=== PATIENT | female | born 1950 | race Caucasian/White ===

== ENCOUNTER 2018-08-29 05:40 | Inpatient (IN) | payer OTHER, MEDICARE ==
[2018-08-29] MEDS ORDERED: LIDOCAINE 1% 2 ML INJ ID PRN (06:48)
[2018-08-29] MEDS ORDERED: LR 1,000 ML IV ONE (06:48)
[2018-08-29] MEDS ORDERED: BUPIVACAINE/EPI 0.5% 30 ML SDV ONE (08:06)
[2018-08-29] MEDS ORDERED: VANCOMYCIN 1 GM VIAL ONE (08:06)
[2018-08-29] MEDS ORDERED: BACITRACIN 50,000 UNITS/10 ML SYR IRR ONE (08:07)
[2018-08-29] MEDS ORDERED: ceFAZolin 2 GM/DEXTROSE 100 ML IV ONE (08:13)
--- NOTE | 2018-08-29 08:14 | PDHPUP ---
History & Physical Update H&P update statement: This history and physical update is based on an assessment of the patient which was completed after admission or registration (within 24 hours), but prior to the surgery/procedure. H&P update: H&P reviewed & patient examined, no change in patient's condition since H&P completed
--- NOTE | 2018-08-29 08:54 | PDANEPAE ---
ANE Past Medical History - Cardiovascular History Hx Hypertension: Yes Hx Arrhythmias: No Hx Chest Pain: No Hx Coronary Artery / Peripheral Vascular Disease: No Hx CHF / Valvular Disease: No Hx Palpitations: No - Pulmonary History Hx COPD: No Hx Asthma/Reactive Airway Disease: No Hx Recent Upper Respiratory Infection: No Hx Oxygen in Use at Home: No Hx Sleep Apnea: No Sleep Apnea Screening Result - Last Documented: Negative Pulmonary History Comment: a little bit of wheezing, pcp ordered flonase, has controlled it - Neurologic History Hx Cerebrovascular Accident: No Hx Seizures: No Hx Dementia: No - Endocrine History Hx Diabetes: No Hypothyroid: No Hyperthyroid: No Obesity: yes, mild - Renal History Hx Renal Disorders: No - Liver History Hx Hepatic Disorders: No - Neurological & Psychiatric Hx Hx Neurological and Psychiatric Disorders: No - Cancer History Hx Cancer: No - Congenital Disorder History Hx Congenital Disorders: No - GI History GERD: no Hx Gastrointestinal Disorders: No - Other Health History Other Health History: wears reading glasses - Chronic Pain History Chronic Pain: Yes (back pain and bilateral knees) - Surgical History Prior Surgeries: 1966 oophorectomy x1. 1976 hemorrhoidectomy and tubal ligation ANE Review of Systems Review of Systems: - Exercise capacity Exercise capacity: limited by disability METS (RN): 4 METS ANE Patient History - Allergies Allergies/Adverse Reactions: No Known Allergies Allergy (Verified 08/12/18 12:17) - Home Medications Home Medications: ACETAMINOPHEN 08/12/18 [Last Taken 08/28/18] Flonase Allergy Relief 08/12/18 [Last Taken 08/28/18] Herbals/Supplements -Info Only 08/12/18 [Last Taken 08/05/18] Losartan Potassium 25 mg PO DAILY 08/12/18 [Last Taken 08/28/18] Triamterene-Hctz 37.5-25 mg Tb PO DAILY 08/12/18 [Last Taken 08/28/18] - NPO status NPO Since - Liquids (Date): 08/29/18 NPO Since - Liquids (Time): 04:00 NPO Since - Solids (Date): 08/28/18 NPO Since - Solids (Time): 15:00 - Anes Hx Anes Hx: no prior problems - Smoking Hx Smoking Status: Never smoked Marijuana use: No - Alcohol Use Alcohol Use: Occasionally - Family Anes Hx Family Anes Hx: neg - N/A Family Hx Anesthesia Complications: none ANE Labs/Vital Signs - Vital Signs Blood Pressure: 156/92 Heart Rate: 70 Respiratory Rate: 15 O2 Sat (%): 91 Height: 165.1 cm Weight: 90.718 kg ANE Physical Exam - Airway Neck exam: decreased ROM Mallampati Score: Class 3 Mouth exam: normal dental/mouth exam - Pulmonary Pulmonary: no respiratory distress, no rales or rhonchi, clear to auscultation - Cardiovascular Cardiovascular: regular rate and rhythym, no murmur, rub, or gallop - ASA Status ASA Status: II ANE Anesthesia Plan Anesthesia Plan: general endotracheal anesthesia Total IV Anesthesia: No
[2018-08-29] MEDS ORDERED: fentaNYL 100 MCG/2 ML INJ ONE ×3 (09:15→15:41)
[2018-08-29] MEDS ORDERED: PROPOFOL/EMULSION 500 MG/50 ML BOTTLE IV ONE ×3 (09:16→13:18)
[2018-08-29] MEDS ORDERED: REMIFENTANIL HCL 1 MG VIAL ONE ×3 (09:16→13:18)
[2018-08-29] MEDS ORDERED: PROPOFOL 200 MG/20 ML VIAL ONE (09:16)
[2018-08-29] MEDS ORDERED: DEXAMETHASONE 4 MG/ML VIAL ONE (09:17)
[2018-08-29] MEDS ORDERED: ONDANSETRON 4 MG/2 ML VIAL ONE (09:17)
[2018-08-29] MEDS ORDERED: ROCURONIUM 50 MG/5 ML VIAL ONE ×2 (09:17→09:59)
[2018-08-29] MEDS ORDERED: LIDOCAINE 2% 2 ML INJ ONE ×2 (09:22)
[2018-08-29] MEDS ORDERED: PHENYLEPHRINE HCL 100 MCG/ML SYR ONE (09:23)
[2018-08-29] MEDS ORDERED: THROMBIN (BOVINE) 20,000 UNIT VIAL TP ONE (09:43)
[2018-08-29] MEDS ORDERED: ePHEDrine SULFATE 25 MG/5 ML SYR ONE (09:59)
[2018-08-29] MEDS ORDERED: *INFUSION*TRANEX ACID 1,000 MG/NS 100 ML IV ONE ×2 (10:00→13:15)
[2018-08-29] MEDS ORDERED: PHENYLEPHRINE HCL 100 MCG/ML SYR IVP PRN (10:16)
[2018-08-29] MEDS ORDERED: ONDANSETRON 4 MG/2 ML VIAL IVP PRN ×2 (10:16→15:04)
[2018-08-29] MEDS ORDERED: NALOXONE HCL 0.4 MG/ML INJ IVP PRN ×2 (10:16→15:04)
[2018-08-29] MEDS ORDERED: HYDROCODONE/APAP 5/325 TAB PO PRN (10:16)
[2018-08-29] MEDS ORDERED: PROMETHAZINE HCL 25 MG/ML INJ IVP PRN (10:16)
[2018-08-29] MEDS ORDERED: HYDROmorphONE/DILAUDID 2 MG/ML INJ IVP PRN (10:16)
[2018-08-29] MEDS ORDERED: LABETALOL HCL 5 MG/ML 20 ML MDV IVP PRN (10:16)
[2018-08-29] MEDS ORDERED: ACETAMINOPHEN 500 MG TAB PO PRN (10:16)
[2018-08-29] MEDS ORDERED: fentaNYL 100 MCG/2 ML INJ IVP PRN (10:16)
[2018-08-29] MEDS ORDERED: oxyCODONE IR 5 MG TAB PO PRN (10:16)
[2018-08-29] MEDS ORDERED: LR 500 ML IV PRN (10:16)
[2018-08-29] MEDS ORDERED: TRANEXAMIC ACID 1,000 MG/10 ML VIAL ONE (10:17)
[2018-08-29] MEDS ORDERED: NEOSTIGMINE METHYLSULFATE 5 MG/5 ML SYR ONE (14:26)
[2018-08-29] MEDS ORDERED: GLYCOPYRROLATE 0.2 MG/1 ML VIAL ONE ×2 (14:26)
[2018-08-29] MEDS ORDERED: HYDROmorphONE/DILAUDID 2 MG/ML INJ ONE ×2 (14:28→15:41)
[2018-08-29] MEDS ORDERED: ONDANSETRON DISINTEGRATING 4 MG TAB PO PRN (15:04)
[2018-08-29] MEDS ORDERED: CYCLOBENZAPRINE 10 MG TAB PO PRN (15:04)
[2018-08-29] MEDS ORDERED: LACTULOSE 20 GM/30 ML UDCUP PO PRN (15:04)
[2018-08-29] MEDS ORDERED: BISACODYL 10 MG SUPP PR PRN (15:04)
[2018-08-29] MEDS ORDERED: POLYETHYLENE GLYCOL 3350 17 GM PKT PO PRN (15:04)
[2018-08-29] MEDS ORDERED: diphenhydrAMINE 25 MG CAP PO PRN (15:04)
[2018-08-29] MEDS ORDERED: HYDROmorphONE/DILAUDID 1 MG/ML INJ IVP PRN (15:04)
[2018-08-29] MEDS ORDERED: HYDROmorphONE/DILAUDID 6 MG/30 ML PCA IV PRN (15:04)
[2018-08-29] MEDS ORDERED: MAGNESIUM HYDROXIDE 30 ML UDCUP PO PRN (15:04)
--- NOTE | 2018-08-29 15:13 | POSTOPPROG ---
Post Op Note Date of Operation: 08/29/18 Surgeon: Vincenzo Luis National Recruiter: Maureen Sterling PA-C Anesthesiologist: Dr. Link Valdivia Anesthesia: GET(General Endotracheal) Pre-op Diagnosis: lumbar stenosis Post-op Diagnosis: lumbar stenosis Indication: low back pain, lumbar radiculitis Procedure: L2-L5 fusion/tlif Inf/Abcess present in the surg proc area at time of surgery?: No EBL: 100-500 Complications: none
[2018-08-29] MEDS ORDERED: DIAZEPAM 5 MG/ML 1 ML SYR ONE (15:16)
--- NOTE | 2018-08-29 15:18 | SOAPPROG ---
SOAP Progress Note Assessment/Plan: Assessment/Plan: 68y/o female s/p L2-L5 fusion/TLIF - orders as written - [employer] only if needed - PT/OT - LSO - TEDs/SCDs/early ambulation - call with issues or concerns 08/29/18 15:16 Subjective: Back hurts, no leg pain Objective: Vital Signs Temp Pulse Resp BP Pulse Ox 36.8 C 70 15 156/92 H 91 L 08/29/18 08:53 08/29/18 10:18 08/29/18 10:18 08/29/18 10:18 08/29/18 10:18 NAD, VSS EOMi, face symmetric LE strength intact quads, hamstring, dorsiflexion, plantarflexion, EHL 5/5=B sensation intact in BLE incision clean, dressed ICD10 Worksheet Patient Problems: Problems Problem Status Onset Lumbar stenosis Acute - ICD10 Problem Qualifiers (1) Lumbar stenosis
[2018-08-29] MEDS: DIAZEPAM 5 MG/ML 1 ML SYR IVP PRN ×2 (15:19→15:52)
--- NOTE | 2018-08-29 16:09 | PDMN ---
Medical Necessity Medical necessity: Pt meets INPT criteria per MD and [facility] (L2-5 fusion, TLIF; [address] [facility] [place]
--- NOTE | 2018-08-29 16:31 | POSTANESTH ---
Post Anesthetic Evaluation Cardiovascular Status: Normal, Stable Respiratory Status: Normal, Stable Level of Consciousness/Mental Status: Can Participate in Eval Pain Control: Adequate, Prn Tx Ordered Nausea/Vomiting Control: Adequate, Prn Tx Ordered Complications Possibly Related to Anesthesia: None Noted
[2018-08-29] MEDS: ceFAZolin 2 GM/DEXTROSE 100 ML IV SCH (17:16)
[2018-08-29] MEDS: oxyCODONE IR 5 MG TAB PO PRN (18:33)
[2018-08-29] MEDS: SENNOSIDES/DOCUSATE SODIUM TAB PO SCH (21:12)
[2018-08-29] MEDS: ACETAMINOPHEN 500 MG TAB PO SCH (21:12)
[2018-08-30] MEDS: ceFAZolin 2 GM/DEXTROSE 100 ML IV SCH (02:33)
[2018-08-30] MEDS: oxyCODONE IR 5 MG TAB PO PRN (02:37)
[2018-08-30] MEDS: ACETAMINOPHEN 500 MG TAB PO SCH ×3 (05:50→22:25)
[2018-08-30] MEDS: TRIAMTERENE/HCTZ 37.5/25 1 EACH TAB PO SCH (09:06)
[2018-08-30] MEDS: SENNOSIDES/DOCUSATE SODIUM TAB PO SCH ×2 (09:06→22:26)
[2018-08-30] MEDS: LOSARTAN POTASSIUM 25 MG TAB PO SCH (09:06)
--- NOTE | 2018-08-30 10:45 | ASMTCMCOM ---
CM Note CM Note Notes: Pt is a healthy 68 y/o female admitted for a lumber stenosis. PT has cleared pt to d/c without any needs. OT is still pending. CM available for d/c needs. Plan: Independent Date Signed: 08/30/2018 10:44 AM Electronically Signed By:MARJ Jacobs
--- NOTE | 2018-08-30 12:54 | GDS ---
This patient underwent an uneventful L2-L5 posterior lumbar decompression fusion with instrumentation on 08/29/2018. She did well during the hospitalization and her drain was discontinued. She progressed well with physical therapy and was subsequently cleared for discharge. The patient has all instructions in her postsurgical booklet. She is not to bend, lift, or twist. She can remove the dressing 24 hours after leaving the hospital and is to shower without having the dressing in place. All medications have been prescribed previously. She was told to avoid blood thinners for the next week and NSAIDs for the next 3 months. She has my cell phone if she has any further questions or concerns. /[id number]/MODL MTDD
--- NOTE | 2018-08-30 12:59 | GPROG ---
I saw and evaluated this patient and I have discussed her plan of care with the patient, her , as well as her nurse. On physical exam, she has no sensory, motor, or vascular deficits. She only has back pain which is a ppropriate. Drain has a moderate amount of output and has been left in place. The dressing did satu rate through and the drain appears to have somewhat stopped, which these 2 things may be related. IMPRESSION: Postoperative day 1 status post L2-L5 posterior lumbar decompression and fusion with ins trumentation. Imaging reviewed includes x-rays of lumbar spine which demonstrate well-positioned instrumentation wi thout evidence of migration or failure. She does have interval reduction of the spondylolisthesis at L3-4 and L4-5. PLAN: We will get the patient up today. We will get her to wear the brace and work with physical th erapy. She can resume a regular diet. Will work with physical therapy, but I think it may be reason able to consider discharge home sometime tomorrow. The patient was encouraged to call me if she has any further questions or concerns. /[id number]/MODL
[2018-08-31] MEDS: oxyCODONE IR 5 MG TAB PO PRN (05:10)
[2018-08-31] MEDS: ACETAMINOPHEN 500 MG TAB PO SCH (05:12)
[2018-08-31 08:16] VITALS: BP 148/78
[2018-08-31] MEDS: LOSARTAN POTASSIUM 25 MG TAB PO SCH (08:30)
[2018-08-31] MEDS: TRIAMTERENE/HCTZ 37.5/25 1 EACH TAB PO SCH (08:31)
[2018-08-31] MEDS: SENNOSIDES/DOCUSATE SODIUM TAB PO SCH (08:31)
[2018-08-31] MEDS ORDERED: ACETAMINOPHEN 500 MG TAB PO SCH (09:00)
--- NOTE | 2018-08-31 10:34 | GPROG ---
I saw the patient at the bedside with her this morning. Overall, she is in good spirits. She is having pain, which has since been controlled on oral regimen. Drain output has decreased, and the patient is neurologically intact. She notes relief of the leg symptoms that she had before the operation. ASSESSMENT AND PLAN: We will discharge the patient when she feels comfortable. That may be later today. We will remove the drain today. The patient is discharged. She will see me in the office in 2 weeks' time and knows all postoperative instructions at this point. /[id number]/MODL MTDD
--- NOTE | 2018-08-31 11:35 | ASMTLACE ---
LACE Length of stay for Answers: 2 days current admission Acuity / Level of Answers: Yes Care: Did the patient have an inpatient admission? Comorbidities - select Answers: Opioid dependence all that apply / Chronic pain Other Notes: HTN # of Emergency department Answers: 0 visits in the last 6 months Score: 10 Date Signed: 08/31/2018 11:35 AM Electronically Signed By:Magui Diana RN
--- NOTE | 2018-08-31 11:45 | ASDISCHSUM ---
Discharge Information Plan Status:Home with No Needs Medically Cleared to Leave:08/31/2018 Discharge Date:08/31/2018 CM D/C Disposition:Home, Routine, Self-Care ADT D/C Disposition: Projected Discharge Date:08/31/2018 Transportation at D/C:Family Discharge Delay Reason: Follow-Up Date:08/31/2018 Discharge Slot:2 - 12:01 pm - 18:00 pm Final Diagnosis:Lumbar-spinal stenosis w/ neurogenic claudication, s/p L2-L5 posterior lumbar decomp ression Placement Information Patient Contact Information Contact Name:ZACHARY Relationship: Address:[address] [place] [address] City:[place] Alternate Phone: State/Zip Code:[place] [address] Email: Financial Information Financial Class:Medicare Primary Plan Desc:MEDICARE INPATIENT Primary Plan Number:[id number] Secondary Plan Desc:[employer]/MDR SUPPLEMENT Secondary Plan Number:[id number] Assessment Information LACE LACE Length of stay for Answers: 2 days current admission Acuity / Level of Answers: Yes Care: Did the patient have an inpatient admission? Comorbidities - select Answers: Opioid dependence all that apply / Chronic pain Other Notes: HTN # of Emergency department Answers: 0 visits in the last 6 months Score: 10 Date Signed: 08/31/2018 11:35 AM Electronically Signed By:Magui Diana RN [facility] CM Progress Note CM Note CM Note Notes: Pt is a healthy 68 y/o female admitted for a lumber stenosis. PT has cleared pt to d/c without any needs. OT is still pending. CM available for d/c needs. Plan: Independent Date Signed: 08/30/2018 10:44 AM Electronically Signed By:MARJ Jacobs Case Management Discharge Plan Note Case Management Discharge Discharge Order Complete? Answers: Yes Patient to Obtain Answers: Independently Medications Transportation Arranged Answers: Family/Friends Transport will Pick (Date 08/31/2018 12:00 AM & Time) EMTALA Complete Answers: No Notes: N/A Case Management Transport Answers: No Notes: N/A Form Complete Faxed Final Orders Answers: No Notes: N/A Agency/Facility Transfer Answers: No Notes: N/A Report Printed & Faxed to Receiving Agency Family Notified Answers: Yes Notes: at bedside Discharge Comments Notes: Reviewed chart regarding discharge plan of care, pt's progress. Pt is s/p L2-L5 posterior lumbar decompression. Per MD notes, pt to discharge home independently with family support and no identified needs. PT cleared pt for home with use of a front-wheeled walker. OT recommends HHC with 24 hr supervision. Spoke with LUIS ANGEL Santacruz - per Noam, pt safe to discharge without HHC, "pt feeling more confident today." Pt to follow up as directed. IM signed. CM available for any further issues or concerns. Discharge Plan: Home independently with family support Date Signed: 08/31/2018 11:44 AM Electronically Signed By:Magui Diana RN Intervention Information
== END 2018-08-31 12:17 | disposition home or self-care (01) | DRG 460 ==
LOC: F3N 05:40
PROVIDERS: ADMIT Orthopaedic Surgery Orthopaedic Surgery of the Spine; ATTEND Orthopaedic Surgery Orthopaedic Surgery of the Spine
DX: M43.16 Spondylolisthesis, lumbar region (principal); M47.26 Other spondylosis with radiculopathy, lumbar region; M51.16 Intervertebral disc disorders with radiculopathy, lumbar region
CPT/HCPCS: 97116-GP; 97161-GP; 97165-GO; 97530-GP; 97535-GO; C1713; G8978-GP-CI; G8978-GP-CJ; G8979-GP-CI; G8980-GP-CI; G8987-GO-CK; G8988-GO-CI; J0690; J1100; J1170; J2370; J2405; J2704; J2710; J3010; J3360; J3370

== ENCOUNTER 2018-10-23 12:29 | Inpatient (IN) | payer OTHER, MEDICARE ==
[2018-10-23] MEDS ORDERED: ceFAZolin 2 GM/DEXTROSE 100 ML IV ONE (12:57)
[2018-10-23] MEDS ORDERED: TRANEXAMIC ACID 1,000 MG in NS 100 ML IV ONE (12:57)
--- NOTE | 2018-10-23 13:23 | GHP ---
The patient underwent an uneventful lumbar decompression and fusion with instrumentation approximatel y 7 weeks ago. She was noted to have a draining incision today. I saw her in the clinic. Clearly, there is some sort of sinus tract deep. I think we should perform an irrigation and debridement. PHYSICAL EXAMINATION: Draining sinus tract. No sensory, motor, or vascular deficits noted. Mild er ythema noted around the incision. IMPRESSION: Possible lumbar spine infection. ASSESSMENT AND PLAN: We will admit the patient. Get blood cultures, urinalysis, chest x-ray and sim ple labs. We will make the patient n.p.o. and hopefully get her on for an irrigation and debridement of the lumbar spine tonight. The patient expressed understanding of the plan. /[id number]/MODL
[2018-10-23 14:17] LABS: PLATELET COUNT 320 10^3/uL (150-400)
[2018-10-23] MEDS ORDERED: LR 1,000 ML IV SCH (16:00)
[2018-10-23] MEDS ORDERED: MIDAZOLAM 2 MG/2 ML VIAL IVP ONE (19:46)
--- NOTE | 2018-10-23 19:46 | PDANEPAE ---
ANE History of Present Illness lumbar spine I&D ANE Past Medical History - Cardiovascular History Hx Hypertension: Yes Hx Arrhythmias: No Hx Chest Pain: No Hx Coronary Artery / Peripheral Vascular Disease: No Hx CHF / Valvular Disease: No Hx Palpitations: No - Pulmonary History Hx COPD: No Hx Asthma/Reactive Airway Disease: No Hx Recent Upper Respiratory Infection: No Hx Oxygen in Use at Home: No Hx Sleep Apnea: No Sleep Apnea Screening Result - Last Documented: Negative Pulmonary History Comment: a little bit of wheezing, pcp ordered flonase, has controlled it - Neurologic History Hx Cerebrovascular Accident: No Hx Seizures: No Hx Dementia: No - Endocrine History Hx Diabetes: No - Renal History Hx Renal Disorders: No - Liver History Hx Hepatic Disorders: No - Neurological & Psychiatric Hx Hx Neurological and Psychiatric Disorders: No - Cancer History Hx Cancer: No - Congenital Disorder History Hx Congenital Disorders: No - GI History Hx Gastrointestinal Disorders: No - Other Health History Other Health History: wears reading glasses - Chronic Pain History Chronic Pain: Yes (back pain and bilateral knees) - Surgical History Prior Surgeries: 1966 oophorectomy x1. 1976 hemorrhoidectomy and tubal ligation ANE Review of Systems Review of systems is: negative Review of Systems: - Exercise capacity Exercise capacity: limited by disability ANE Patient History - Allergies Allergies/Adverse Reactions: No Known Allergies Allergy (Verified 08/12/18 12:17) - Home Medications Home medications: home medication list seen and reviewed Home Medications: Acetaminophen [Tylenol ES 500 mg (*)] 500 mg PO Q4 PRN 08/29/18 [Last Taken ] Fluticasone Nasal [Flonase Nasal [place] (RX)] 1 sprays NASAL DAILY PRN 08/29/18 [ Last Taken Unknown] Losartan Potassium [Cozaar 25 mg (*)] 25 mg PO DAILY 08/29/18 [Last Taken ] Triamterene/Hydrochlorothiazid [Triamterene-Hctz 37.5-25 mg Tb] 1 each PO DAILY 08/29/18 [Last Taken 10/23/18] Diclofenac Sodium 1% [Voltaren Gel (*)] 1 sukh TP DAILY PRN 10/23/18 [Last Taken 10/23/18] Tetrahydrozoline 0.05% [Visine (*)] 1 drop EACHEYE DAILY PRN 10/23/18 [Last Taken Unknown] - NPO status NPO Status: no food or drink >8 hours NPO Since - Liquids (Date): 10/23/18 NPO Since - Liquids (Time): 08:30 NPO Since - Solids (Date): 10/23/18 NPO Since - Solids (Time): 08:30 - Anes Hx Anes Hx: no prior problems - Smoking Hx Smoking Status: Never smoked - Family Anes Hx Family Anes Hx: none Family Hx Anesthesia Complications: none ANE Labs/Vital Signs - Labs Result Diagrams: 10/23/18 14:03 10/23/18 14:03 - Vital Signs Vital Signs: reviewed preoperatively; see RN documention for details Blood Pressure: 122/74 Heart Rate: 73 Respiratory Rate: 16 O2 Sat (%): 92 Height: 162.56 cm Weight: 87.09 kg ANE Physical Exam - Airway Neck exam: decreased ROM Mallampati Score: Class 2 Mouth exam: abnormal chin - Pulmonary Pulmonary: no respiratory distress - Cardiovascular Cardiovascular: regular rate and rhythym - ASA Status ASA Status: II ANE Anesthesia Plan Anesthesia Plan: general endotracheal anesthesia
[2018-10-23] MEDS ORDERED: LR 1,000 ML IV ONE (20:01)
[2018-10-23] MEDS ORDERED: CEFAZOLIN 2 GM/DEXTROSE/100 ML BAG IV ONE (20:09)
[2018-10-23] MEDS ORDERED: MIDAZOLAM 2 MG/2 ML VIAL ONE (20:15)
[2018-10-23] MEDS ORDERED: ROCURONIUM 50 MG/5 ML VIAL ONE (20:19)
[2018-10-23] MEDS ORDERED: DEXAMETHASONE 4 MG/ML VIAL ONE (20:19)
[2018-10-23] MEDS ORDERED: LIDOCAINE 2% 100 MG/5 ML SYR ONE (20:19)
[2018-10-23] MEDS ORDERED: ONDANSETRON 4 MG/2 ML VIAL ONE (20:19)
[2018-10-23] MEDS ORDERED: fentaNYL 250 MCG/5 ML INJ ONE (20:20)
[2018-10-23] MEDS ORDERED: PROPOFOL 200 MG/20 ML VIAL ONE (20:20)
[2018-10-23] MEDS ORDERED: BACITRACIN 50,000 UNITS/10 ML SYR IRR ONE ×2 (20:32→21:04)
[2018-10-23] MEDS ORDERED: VANCOMYCIN 1 GM VIAL ONE (21:07)
[2018-10-23] MEDS ORDERED: ePHEDrine SULFATE 25 MG/5 ML SYR ONE (21:14)
[2018-10-23] MEDS ORDERED: LABETALOL HCL 5 MG/ML 20 ML MDV IVP PRN (21:28)
[2018-10-23] MEDS ORDERED: fentaNYL 100 MCG/2 ML INJ IVP PRN (21:28)
[2018-10-23] MEDS ORDERED: DEXAMETHASONE 4 MG/ML VIAL IVP PRN (21:28)
[2018-10-23] MEDS ORDERED: oxyCODONE IR 5 MG TAB PO PRN (21:28)
[2018-10-23] MEDS ORDERED: ONDANSETRON 4 MG/2 ML VIAL IVP PRN (21:28)
[2018-10-23] MEDS ORDERED: HYDROCODONE/APAP 5/325 TAB PO PRN (21:28)
[2018-10-23] MEDS ORDERED: MEPERIDINE 25 MG/0.5 ML AMP IVP PRN (21:28)
[2018-10-23] MEDS ORDERED: NALOXONE HCL 0.4 MG/ML INJ IVP PRN (21:28)
[2018-10-23] MEDS ORDERED: HYDROmorphONE/DILAUDID 2 MG/ML INJ IVP PRN (21:28)
[2018-10-23] MEDS ORDERED: PROMETHAZINE HCL 25 MG/ML INJ IVP PRN (21:28)
[2018-10-23] MEDS ORDERED: ACETAMINOPHEN 500 MG TAB PO PRN (21:28)
--- NOTE | 2018-10-23 21:28 | POSTANESTH ---
Post Anesthetic Evaluation Cardiovascular Status: Normal, Stable, Similar to Pre-Op Cond Respiratory Status: Normal, Stable, Similar to Pre-op Cond. Level of Consciousness/Mental Status: Can Participate in Eval, Mildly Sleepy, Arousable Pain Control: Adequate, Prn Tx Ordered Nausea/Vomiting Control: Adequate, Prn Tx Ordered Complications Possibly Related to Anesthesia: None Noted
[2018-10-23] MEDS ORDERED: LACTULOSE 20 GM/30 ML UDCUP PO PRN (21:57)
[2018-10-23] MEDS ORDERED: MAGNESIUM HYDROXIDE 30 ML UDCUP PO PRN (21:57)
[2018-10-23] MEDS ORDERED: POLYETHYLENE GLYCOL 3350 17 GM PKT PO PRN (21:57)
[2018-10-23] MEDS ORDERED: BISACODYL 10 MG SUPP PR PRN (21:57)
--- NOTE | 2018-10-23 22:03 | SUROPNOTE ---
[facility] Operative Report - Surgery SURGEON: Vincenzo Luis MD DATABASE DESIGN ANALYST: None. ANESTHESIA: General. PREOPERATIVE DIAGNOSIS: Lumbar spine infection. POSTOPERATIVE DIAGNOSIS: Lumbar spine infection. PROCEDURE PERFORMED: Lumbar spine irrigation and debridement, application of nondurable negative pressure device. FINDINGS: Gross drainage throughout the lumbar spine, to the bone and spinal instrumentation. SPECIMENS: Cultures x4 (2 superficial, 2 deep). ESTIMATED BLOOD LOSS: 50 cc. INDICATIONS: The patient is a very pleasant 68-year-old female who underwent a lumbar spine decompression and fusion with instrumentation about 8 weeks ago. He was doing well until about a week ago when he was noted to have some drainage from the incision. He was indicated for surgery by me after onset of malaise and persistent drainage despite antibiotic administration. DESCRIPTION OF PROCEDURE: A surgical time-out was performed and all parties were in agreement on the procedure to be performed, antibiotics were held for the procedure, and preoperative tranexamic acid was administered for the purpose of limiting blood loss. Approach: The incision was opened up and immediate gush of dishwater-type fluid was returned. This was cultured along with some trace amounts of tissue. These were sent as superficial cultures. Antibiotics were administered at this time. The fascia was then opened up as it was noted to be somewhat boggy. Another immediate shields of fluid with abundant fibrinous tissue and purulence was noted. This was also sent for culture as well. Irrigation and debridement: At this time, 3 L of saline was used to debride the lumbar spine and any bits of tissue that were noted were scraped out. Curettes were scraped on all surfaces here as well. At this time, Betadine was placed into the surgical wound itself and left to sit there for approximately 4 minutes. This was then irrigated out with 3 additional L of saline impregnated with antibiotic. Attention was then turned toward closure. #1 Vicryl were used to reapproximate the muscle layer. A deep drain was placed deep to this layer. #1 Vicryl were also used in both an interrupted and running fashion to close the fascia. 2-0 Monocryl sutures were used to reapproximate the deep dermal layers and a 4-0 Stratafix was used to approximate the skin. Mastisol was then applied and a negative pressure wound VAC was then applied to the skin. The suction was noted to be good. I was present for the entirety of the procedure. DRAINS: Negative pressure incisional VAC, deep drain (deep to the fascia). COMPLICATIONS: None. CONDITION: Stable to PACU. ASSESSMENT AND PLAN: The patient will be returned to the PACU. I have since discussed with Miranda Franklin MD regarding infectious disease consultation. At this point, we will put her on some empiric antibiotics and leave the rest to ID, to be consulted tomorrow. He does not need to respect spine precautions. Further medical management will be per ID and we will admit the patient for at least 24 hours to come up with a plan regarding infection.
[2018-10-23] MEDS: METHOCARBAMOL 750 MG TAB PO PRN (22:50)
[2018-10-24] MEDS ORDERED: ceFAZolin 2 GM/DEXTROSE 100 ML IV SCH (05:00)
[2018-10-24 05:21] LABS: PLATELET COUNT 276 10^3/uL (150-400)
--- NOTE | 2018-10-24 06:06 | CPEKG ---
Test Reason : OPEN Blood Pressure : / mmHG Vent. Rate : 072 BPM Atrial Rate : 072 BPM P-R Int : 175 ms QRS Dur : 090 ms QT Int : 393 ms P-R-T Axes : 026 026 029 degrees QTc Int : 431 ms Sinus rhythm Confirmed by Keith Meeks ([id number]) on 10/24/2018 6:05:12 AM Referred By: Confirmed By:Keith Meeks
--- NOTE | 2018-10-24 08:07 | PDMN ---
Medical Necessity Medical necessity: [facility] Neurosurgery or Procedure GR yo s/p lumbar fusion 8wks ago admitted for infection to surgical site, incision and drainage completed by neurosurgery, noted gross drainage throughout lumbar spine, to bone and spinal instrumentation. Wound vac placed. Cultures pending. Infectious disease to follow. Anticipate>2MN for IV antibx, infection management.
--- NOTE | 2018-10-24 09:14 | PDCONSULT ---
Seed Corn Production Manager Note: INFECTIOUS DISEASE CONSULTATION A/P Post op wound infection down to bone/hardware s/p washout. Gram stain with GPC --Rx vancomycin until more information about GPC known. Vancomycin 1gm IV q12h --check trough before 4th dose --PICC line after blood cultures negative 48hours --IV antibiotic duration 8 weeks --reviewed general risks of IV antibiotic therapy and will provide more specifics when specific agent selected based on cultures --reviewed risk of Cdiff --discussed need for home IV abx w case management --add on CRP and LFTs to labs # Soft systolic murmur: unclear significance, will sort out based on results of blood cultures Date of consultation: 10/24/18 MD requesting consult: Dr. Richard Luis History of present illness: 68 year-old female who underwent posterior lumbar decompression fusion on . Perioperatively she received cefazolin 2 gm and vancomycin 1 gm. Postoperatively, she notes that she recovered rapidly only needing acetaminophen while in the hospital. After d/c took codeine at night and was " up and at them pretty quickly" with the exception of bending, lifting, and twisting (per surgical orders). She proceeded to go on a relaxing vacation and wore a "bag brace" during the 4th week s/p discharge. On 10/11 was seen by her surgeon Dr. Luis with no new concerns and was cleared. Subsequently, she purchased Mederma scar gel that she began applying to her incision. About 2.5 weeks later she began to notice some drainage from the surgical incision and notifed surgeon about [address] Richard Luis evaluated and elected to debride yesterday. Denies other signs of infection Denies associated fevers or resurgence of back discomfort with the exception of some skin tenderness surrounding the incision. Here at [facility] she presented with nonhealing draining wound, went to the OR with washout noted for purulence described as dishwater type fluid. Other information: NKDA to medications, does report seasonal allergies tx with Flonase. 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 Was born in [place], [place]. Has lived in [place] and [facility] in childhood but primarily was raised in [place]. Pt has a cat and a dog at home. She does see a citizen participation specialist at [facility] ([place], [place]). No children PMHx: HTN Surgical hx: oophorectomy in 1968, tubal ligation, tonsillectomy in childhood Social hx: drinks etoh x6-8 drinks per month, no children Family hx: both parents were smokers, but she was never a smoker Allergies: 3 Allergy/AdvReac Type Severity Reaction Status Date / Time No Known Allergies Allergy Verified 08/12/18 12:17 Medications: 3 Generic Name Dose Route Start Last Admin Trade Name Freq PRN Reason Stop Dose Admin Bisacodyl 10 mg 10/23/18 21:57 Dulcolax Rectal LA 04/21/19 21:56 DAILY PRN Constipation Protocol Famotidine 20 mg 10/24/18 09:00 Pepcid PO 04/22/19 08:59 BID SRIDEVI Lactated Ringer's 1,000 mls @ 125 mls/hr 10/23/18 16:00 10/23/18 23:00 Lr IV 04/21/19 15:59 1,000 mls CONT SRIDEVI Administration Cefazolin Sodium/Dextrose 100 mls @ 200 mls/hr 10/24/18 05:00 10/24/18 05:03 Ancef IV 10/24/18 13:29 100 mls Q8H SRIDEVI Administration Protocol Lactulose 20 gm 10/23/18 21:57 Cephulac PO 04/21/19 21:56 TID PRN Constipation Protocol Magnesium Hydroxide 30 ml 10/23/18 21:57 Milk Of Magnesia PO 04/21/19 21:56 DAILY PRN Constipation Protocol Methocarbamol 750 mg 10/23/18 21:57 10/23/18 22:50 Robaxin PO 04/21/19 21:56 750 mg QID PRN Administration Spasms Morphine Sulfate 2 - 4 mg 10/23/18 21:57 10/23/18 22:51 Morphine IVP 11/02/18 21:56 2 mg Q1HR PRN Administration Pain, Breakthrough Polyethylene Glycol 17 gm 10/23/18 21:57 Miralax PO 04/21/19 21:56 DAILY PRN Constipation, patient prefers Protocol Senna/Docusate Sodium 1 - 2 tab 10/24/18 09:00 Senokot-S PO 04/22/19 08:59 BID SRIDEVI Protocol ROS: 10 systems were reviewed and negative with the exception of the elements mentioned in the history of present illness. Vitals: 3 Temp Pulse Resp BP Pulse Ox 37.2 C 82 13 125/68 H 90 L 10/24/18 08:00 10/24/18 08:00 10/24/18 08:00 10/24/18 08:00 10/24/18 08:00 Physical exam: General: Well-nourish, well-developed, in no acute distress, nontoxic. HEENT: No scleral icterus, no conjunctival injection. Oropharynx with moist mucous membranes, no thrush or no oral ulcerations, dentition in good repair with extensive prior dental work. Respiratory: Clear to auscultation bilaterally without adventitious sounds. Normal respiratory effort. Cardiovascular: Regular rate and rhythm, 2/6 systolic murmur loudest at LUSB, no rubs or gallops. No lower extremity edema. Back: Lumbar spine with incisional wound VAC in place. BALDEV drain - bloody fluid Skin: Warm and dry to touch. No rashes present. Neuro: Alert and oriented. Moving all 4 extremities. Laboratory results: 3 WBC 6.10 10^3/uL (3.80-9.50) 10/24/18 05:08 RBC 3.87 10^6/uL (4.18-5.33) L 10/24/18 05:08 Hgb 11.7 g/dL (12.6-16.3) L 10/24/18 05:08 Hct 35.6 % (38.0-47.0) L 10/24/18 05:08 MCV 92.0 fL (81.5-99.8) 10/24/18 05:08 MCH 30.2 pg (27.9-34.1) 10/24/18 05:08 MCHC 32.9 g/dL (32.4-36.7) 10/24/18 05:08 RDW 13.6 % (11.5-15.2) 10/24/18 05:08 Plt Count 276 10^3/uL (150-400) 10/24/18 05:08 MPV 9.8 fL (8.7-11.7) 10/24/18 05:08 Neut % (Auto) 88.3 % (39.3-74.2) H 10/24/18 05:08 Lymph % (Auto) 8.4 % (15.0-45.0) L 10/24/18 05:08 [place] % (Auto) 2.8 % (4.5-13.0) L 10/24/18 05:08 Eos % (Auto) 0.0 % (0.6-7.6) L 10/24/18 05:08 Baso % (Auto) 0.2 % (0.3-1.7) L 10/24/18 05:08 Nucleat RBC Rel Count 0.0 % (0.0-0.2) 10/24/18 05:08 Absolute Neuts (auto) 5.39 10^3/uL (1.70-6.50) 10/24/18 05:08 Absolute Lymphs (auto) 0.51 10^3/uL (1.00-3.00) L 10/24/18 05:08 Absolute Monos (auto) 0.17 10^3/uL (0.30-0.80) L 10/24/18 05:08 Absolute Eos (auto) 0.00 10^3/uL (0.03-0.40) L 10/24/18 05:08 Absolute Basos (auto) 0.01 10^3/uL (0.02-0.10) L 10/24/18 05:08 Absolute Nucleated RBC 0.00 10^3/uL (0-0.01) 10/24/18 05:08 Immature Gran % 0.3 % (0.0-1.1) 10/24/18 05:08 Immature Gran # 0.02 10^3/uL (0.00-0.10) 10/24/18 05:08 RBC/WBC/PLT Morphology TNP 10/24/18 05:08 Platelet Estimate TNP 10/24/18 05:08 ESR 23 MM/HR (0-30) 10/23/18 14:03 Sodium 134 mEq/L (135-145) L 10/24/18 05:08 Potassium 4.1 mEq/L (3.5-5.2) 10/24/18 05:08 Chloride 101 mEq/L (97-110) 10/24/18 05:08 Carbon Dioxide 24 mEq/l (22-31) 10/24/18 05:08 Anion Gap 9 mEq/L (6-14) 10/24/18 05:08 BUN 18 mg/dL (7-23) 10/24/18 05:08 Creatinine 0.7 mg/dL (0.6-1.0) 10/24/18 05:08 Estimated GFR > 60 10/24/18 05:08 Glucose 156 mg/dL (70-100) H 10/24/18 05:08 Calcium 9.0 mg/dL (8.5-10.4) 10/24/18 05:08 C-React Prot High Sens > 15.0 mg/L 10/23/18 14:03 Urine Color PALE YELLOW 10/23/18 15:05 Urine Appearance CLEAR 10/23/18 15:05 Urine pH 6.0 (5.0-7.5) 10/23/18 15:05 Ur Specific [place] 1.010 (1.002-1.030) 10/23/18 15:05 Urine Protein NEGATIVE (NEGATIVE) 10/23/18 15:05 Urine Ketones NEGATIVE (NEGATIVE) 10/23/18 15:05 Urine Blood NEGATIVE (NEGATIVE) 10/23/18 15:05 Urine Nitrate NEGATIVE (NEGATIVE) 10/23/18 15:05 Urine Bilirubin NEGATIVE (NEGATIVE) 10/23/18 15:05 Urine Urobilinogen NEGATIVE EU (0.2-1.0) 10/23/18 15:05 Ur Leukocyte Esterase NEGATIVE (NEGATIVE) 10/23/18 15:05 Urine Glucose NEGATIVE (NEGATIVE) 10/23/18 15:05 Microbiology: 10/23/18 OR gram stains positive for GPC. 10/23/18 Blood cultures (2) pending. Imagining studies: 10/23/18 CXR shows no infiltrates and tortuous aorta. Scribe attestation: I, Fatimah Mccracken, am scribing for, and in the presence of, Miranda Franklin MD. I, Miranda Franklin MD, personally performed the services described in this documentation, as scribed by Fatimah Mccracken in my presence and it is both accurate and complete. Time 75 min >50% time spent with education and counseling regarding PICC Line risks, antibiotic risks duration and need for suppressive antibiotic therapy.
--- NOTE | 2018-10-24 10:04 | ASMTCMCOM ---
CM Note CM Note Notes: Pt presents with ID of lumbar. CM discussed with MD. Pt getting pic line tomorrow, likely discharge this weekend. [facility] will follow. CM submit referral to [facility]. CM to follow. Plan: [facility] with [facility]. Date Signed: 10/24/2018 10:03 AM Electronically Signed By:MARJ Moore
[2018-10-24] MEDS: VANCOMYCIN HCL/NORMAL SALINE 250 ML IV SCH ×2 (10:26→21:55)
[2018-10-24] MEDS: SENNOSIDES/DOCUSATE SODIUM TAB PO SCH ×2 (10:30→20:53)
[2018-10-24] MEDS: FAMOTIDINE 20 MG TAB PO SCH ×2 (10:30→20:54)
--- NOTE | 2018-10-24 11:21 | ASMTCMCOM ---
CM Note CM Note Notes: Pt reports they may want to come into the clinic for infusion services depending on frequency. Kaylee from [facility] will let us know cost of home infusion. CM to follow. Plan: infusion at [facility] clinic VS home w/homecare & infusion services. Date Signed: 10/24/2018 11:21 AM Electronically Signed By:MARJ Moore
--- NOTE | 2018-10-24 14:36 | GPROG ---
DATE OF SERVICE: 10/24/2018 I saw evaluated the patient this morning. Overall, she is doing quite well. She reports no pain, as shwetha from some minor pain in the back. I also touched base with the Infectious Disease specialist. PHYSICAL EXAM: BACK: Both the drain and her incisional VAC are in place with good suction. She has no sensory, motor, or vascular deficits. LABORATORY DATA: Chart was reviewed, which demonstrate 4+ PMNs with 1+ gram-positive cocci. IMPRESSION: Postoperative day 1 status post irrigation, debridement for confirmed infection. ASSESSMENT/PLAN: I will defer decision making regarding antibiotic administration at this point to I nfectious Disease. It is more than likely she will need a peripherally inserted central catheter cassie e, as well as long-term antibiotic administration per them. At this point, it will be routine orthop edic management throughout her hospital stay. /[id number]/MODL
--- NOTE | 2018-10-24 15:31 | ASMTCMCOM ---
CM Note CM Note Notes: Pt met with [employer] who provided education and cost information on medications/ insurance coverage. Pt and family agreeable with Home Infusion Services through [facility]. They said they want to come into [facility] in [place] for nursing services, instead of having Home Nursing. Pt needs health teaching on using eclipse ball prior to discharge. If pt is agreeable, [facility] is able to service pt. Pt's PCP is Dr. Peraza at [facility] in [place]. Date Signed: 10/24/2018 03:30 PM Electronically Signed By:MARJ Moore
[2018-10-24] MEDS: ACETAMINOPHEN 325 MG TAB PO PRN ×2 (16:43→22:47)
[2018-10-24] MEDS: METHOCARBAMOL 750 MG TAB PO PRN (20:54)
[2018-10-25] MEDS: METHOCARBAMOL 750 MG TAB PO PRN ×2 (03:03→20:04)
[2018-10-25] MEDS: ACETAMINOPHEN 325 MG TAB PO PRN ×3 (06:19→23:37)
[2018-10-25] MEDS: SENNOSIDES/DOCUSATE SODIUM TAB PO SCH ×2 (08:00→20:04)
[2018-10-25] MEDS: FAMOTIDINE 20 MG TAB PO SCH ×2 (08:01→20:04)
[2018-10-25] MEDS: VANCOMYCIN HCL/NORMAL SALINE 250 ML IV SCH ×2 (10:01→22:20)
--- NOTE | 2018-10-25 11:31 | ASMTCMCOM ---
CM Note CM Note Notes: [facility] compliance representative met with CM re pt's infusions. [facility]'s understanding is that a [facility] nurse will teach pt how to use eclipse ball prior to discharge. [facility] will deliver infusion supplies to pt in hospital. They need to be informed of d/c 4 hours prior in order for them to deliver supplies prior to her d/c from hospital. D/C Plan: Independent with training from [facility] nurse, delivery of infusion supplies from [facility] and OP nurse. Date Signed: 10/25/2018 11:30 AM Electronically Signed By:Jewels Hamilton
[2018-10-25] MEDS ORDERED: ALTEPLASE 2 MG VIAL IVP PRN (12:56)
--- NOTE | 2018-10-25 18:45 | PCMIDPN ---
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 Treatment options post discharge include daptomycin 6 milligrams/kilogram IV Q 24 hr versus vancomycin dosed q.12 hours versus vancomycin by continuous infusion over 24 hr. Will review with case management tomorrow to determine feasibility of options and cost. Patient prefers to administer antibiotics after education with labs being done in [place] at our office (vancomycin labs typically twice weekly while daptomycin labs are typically once weekly). Risks and benefits of PICC line including risk of PICC associated DVT or infection discussed with patient today. Anticipate 8 week course of IV antibiotics based on deep back involvement with need for suppressive antibiotics thereafter given retained hardware. 10/25/18 18:41 Subjective: Patient status post PICC line insertion. Eager for hospital discharge. Objective: Vital Signs Temp Pulse Resp BP Pulse Ox 36.8 C 88 14 128/82 H 90 L 10/25/18 16:00 10/25/18 16:00 10/25/18 16:00 10/25/18 16:00 10/25/18 16:00 Microbiology 10/23/18 20:52 Gram Stain - Final Back - Eswab 10/23/18 20:57 Gram Stain - Final Back - Eswab 10/23/18 20:57 Mycobacterial Smear (MAYA) - Final Back - Eswab Mycobacterial Culture - Final 10/23/18 20:52 Mycobacterial Smear (MAYA) - Final Back - Eswab Mycobacterial Culture - Final Laboratory Results 10/24/18 05:08 10/24/18 05:08 10/24/18 10/25/18 10/26/18 05:59 05:59 05:59 Intake Total 8842 2500 2000 Output Total 1050 2700 3101 Balance 7792 -200 -1101 ESR 23 MM/HR (0-30) 10/23/18 14:03 C-Reactive Protein 37.5 mg/L (<10.0) H 10/24/18 05:08 Vancomycin # 2 Back cultures with growth of Finegoldia magna Blood cultures x2 no growth - Physical Exam General Appearance: alert, no apparent distress EENT: No scleral icterus, No thrush, No conjunctival petechiae Respiratory: lungs clear, No respiratory distress Cardiac/Chest: regular rate, rhythm, No systolic murmur Abdomen: non-tender Back: other (Incisional wound VAC in place) - Line/s RUE PICC Lines: No drainage, No erythema - Time Spent With Patient Time Spent with Patient: greater than 35 minutes Time Spent with Patient: Greater than 35 minutes spent on this patients care, greater than 50% of time spent counseling, educating, and coordinating care regarding the above mentioned plan. ICD10 Worksheet Patient Problems: Problems Problem Status Onset Lumbar stenosis Acute
[2018-10-26] MEDS: METHOCARBAMOL 750 MG TAB PO PRN ×2 (04:26→21:02)
--- NOTE | 2018-10-26 08:10 | GPROG ---
Overall, she has been quite well. She reports feeling better. Drain has slowed down to minimal output. Skin is intact. She has no sensory, motor, or vascular deficits and has no lower extremity complaints. I reviewed the note from Infectious Disease from their consultation. At this point, they have recommended 8 weeks of antibiotics and they plan to place her on a PICC. I will see the patient tomorrow and as long as antibiotics have been arranged, I am more than comfortable with discharging to home tomorrow. /[id number]/MODL MTDD
[2018-10-26] MEDS: FAMOTIDINE 20 MG TAB PO SCH ×2 (10:59→21:40)
[2018-10-26] MEDS: VANCOMYCIN HCL/NORMAL SALINE 250 ML IV SCH ×2 (11:00→22:01)
[2018-10-26] MEDS: SENNOSIDES/DOCUSATE SODIUM TAB PO SCH ×2 (11:00→21:39)
[2018-10-26] MEDS: ACETAMINOPHEN 325 MG TAB PO PRN ×2 (11:01→21:02)
--- NOTE | 2018-10-26 16:05 | PDIAF ---
- Diagnosis Diagnosis: Postoperative back infection Code Status: Full Code - Medication Management Retirement Antibiotics: Vancomycin 2.5 g IV Q 24 hr by continuous infusion Structural Test Engineer Antibiotic Stop Date: 12/18/17 Discharge Medications: electronically signed and located in the Home Medication List. PICC Care - Routine: Yes - Orders Diet Recommendation: no restrictions on diet Diet Texture: Regular Texture Diet - Labs/Radiology CBC w/diff Date: 10/28/18 (Weekly Q Sunday) CMP Date: 10/28/18 (Weekly Q Sunday) Vanco Trough Date and Time: Random vancomycin level twice weekly Call or Fax Lab and Imaging Results to: Dr. Staley, - Follow Up Care Current Providers and Referrals: BHAVYA BUNDY NP [Other]
--- NOTE | 2018-10-26 16:21 | PCMIDPN ---
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 After further evaluation of potential treatment options, patient has decided on continuous infusion of vancomycin. Anticipate 8 weeks of therapy. This will be followed by suppressive oral antibiotic therapy given presence of indwelling hardware. Patient is planning to forego home care so will need to come to our office twice weekly for lab testing. Anticipate weekly CBC and CMP with twice weekly creatinine and random vancomycin level. Risk and benefits of PICC line including potential for DVT or infection discussed with patient. Side effects of vancomycin including potential for allergic reactions, rash, kidney toxicity , laboratory abnormalities, or hearing loss discussed with patient. Anticipate discharge home in a.m. based on need for logistics of continuous infusion vancomycin to be arranged. I have asked for lab to send Finegoldia isolate out for susceptibilities to include penicillin, doxycycline, ceftriaxone, vancomycin and daptomycin. 10/26/18 16:17 10/26/18 16:20 Subjective: Patient without specific complaints. Eager to go home. No issues related to vancomycin infusion. Objective: Vital Signs Temp Pulse Resp BP Pulse Ox 36.6 C 78 16 129/81 H 94 10/26/18 07:03 10/26/18 07:03 10/26/18 07:03 10/26/18 07:03 10/26/18 07:03 Microbiology 10/23/18 20:52 Gram Stain - Final Back - Eswab 10/23/18 20:57 Gram Stain - Final Back - Eswab 10/23/18 20:57 Mycobacterial Smear (MAYA) - Final Back - Eswab Mycobacterial Culture - Final 10/23/18 20:52 Mycobacterial Smear (MAYA) - Final Back - Eswab Mycobacterial Culture - Final Laboratory Results 10/24/18 05:08 10/26/18 04:23 10/25/18 10/26/18 10/27/18 05:59 05:59 05:59 Intake Total 2500 3000 Output Total 2700 4401 Balance -200 -1401 ESR 23 MM/HR (0-30) 10/23/18 14:03 C-Reactive Protein 37.5 mg/L (<10.0) H 10/24/18 05:08 Vancomycin # 3 Blood cultures x2 no growth Back cultures with growth of Finegoldia magna - Physical Exam General Appearance: alert, no apparent distress - Time Spent With Patient Time Spent with Patient: greater than 35 minutes Time Spent with Patient: Greater than 35 minutes spent on this patients care, greater than 50% of time spent counseling, educating, and coordinating care regarding the above mentioned plan. ICD10 Worksheet Patient Problems: Problems Problem Status Onset Lumbar stenosis Acute
--- NOTE | 2018-10-26 18:07 | ASMTCMCOM ---
CM Note CM Note Notes: Reviewed chart, spoke with Dr. Staley, Dr. Luis and Jewels, RN regarding discharge plan of care, pt's progress. Per Dr. Luis, pt ready for discharge today. Call received from Dr. Staley regarding discharge antibiotics - pt will require 8 weeks of IV antibiotic therapy. Per Dr. Staley, pt able to choose between Vanco 1.25 gm BID, Vanco 2.5 gm continuous infusion or Daptomycin 525 mg every day. Met with pt and pt's to discuss antibiotic choices, home care and home infusion needs. [place] home care [place] people to access their house." Pt also reports feeling as though having home care would be an "intrusion." Pt willing to manage her own IV therapy with regular follow up at Dr. Staley's office. Dr. Staley to the bedside; pt questions answered regarding differences in antibiotics and follow up. Pt and requesting cost differences for each option. Call placed to Kaylee at [facility]. Discussed options for antibiotics. Kaylee to benson and call CM back. Call received from Kaylee - Vanco 1.25 gm BID and Vanco 2.5 gm continuous infusion both cost the same amount. Medicare part B cost is $150.00 for Vanco, plus a Medicare part D daily dress operator of $35.00. Total cost $395.00/week (7 days). Daptomycin 525 mg daily Medicare part B cost is $1220.00 for Dapto, plus a Medicare part D daily dress operator of $25.00. Total cost $1395.00/week (7 days). Cost options discussed with pt and . Pt elected to discharge with Vancomycin 2.5 gm continuous infusion for discharge. Update provided to LUIS ANGEL Donis and Dr. Staley. Call placed to Kaylee with [facility]. Per Kaylee, unable to send antibiotics via [facility] in time for a discharge this evening. Plan for [facility] to send antibiotics and supplies to hospital late tonight via [facility]. Pt to receive Vanco and PICC line teaching at 9:00 am on Sunday10/27/18. Malcolm with Pharmacy at [facility], Kaylee with [facility] and floor RN to conference together for teaching. Update provided to Karen Donis, JESSICA, Dr. Staley, Dr. Luis, pt and pt's . Everyone in agreement of plan. Floor RN to call Kaylee with [facility] at 9:00 Sunday for teaching . Kaylee to assist via telephone conference. Discharge orders and PICC report faxed to [facility] via [facility]; confirmed receipt with Kaylee. Pt to discharge home independently following teaching in the morning on Sunday10/27/18. Pt will follow up with Dr. Staley on Sunday10/28/18 for a random Vanco level. Pt to follow up twice per week for [address] Staley's dog control officer to provide PICC dressing changes and care. CM will continue to follow. Discharge Plan: Home with [facility] Date Signed: 10/26/2018 06:04 PM Electronically Signed By:Magui Diana RN
[2018-10-27 07:42] VITALS: BP 134/85
[2018-10-27] MEDS: SENNOSIDES/DOCUSATE SODIUM TAB PO SCH (10:22)
[2018-10-27] MEDS: FAMOTIDINE 20 MG TAB PO SCH (10:22)
--- NOTE | 2018-10-27 10:59 | ASMTLACE ---
LACE Length of stay for Answers: 3 days current admission Acuity / Level of Answers: Yes Care: Did the patient have an inpatient admission? Comorbidities - select Answers: Opioid dependence all that apply / Chronic pain Other Notes: HTN # of Emergency department Answers: 0 visits in the last 6 months Score: 11 Date Signed: 10/27/2018 10:58 AM Electronically Signed By:Nona Lebron RN
--- NOTE | 2018-10-27 11:01 | ASMTDCNOTE ---
Case Management Discharge Discharge Order Complete? Answers: Yes Patient to Obtain Answers: Independently Medications Transportation Arranged Answers: Family/Friends Discharge Comments Notes: Patient medically cleared for discharge. She will go home with Home infusion services no [facility] per patient choice. Date Signed: 10/27/2018 11:00 AM Electronically Signed By:Nona Lebron RN
--- NOTE | 2018-10-28 15:06 | ASDISCHSUM ---
Discharge Information Plan Status:IV ABX/Infusion Medically Cleared to Leave:10/26/2018 Discharge Date:10/27/2018 11:02 AM CM D/C Disposition:Home Health Service ADT D/C Disposition:Home Health Service Projected Discharge Date:10/26/2018 11:00 AM Transportation at D/C:Family Discharge Delay Reason: Follow-Up Date:10/26/2018 11:00 AM Discharge Slot:1 - 8:01 am - 12:00 noon Final Diagnosis: Placement Information Referral Type:Home Infusion Referral ID:[id number] Provider Name:[facility] Address 1:[address] Address 2: City:[place] Selection Factors: State:[place] Referral Type:*Home Health Care Services Referral ID:[id number] Provider Name: Address 1: Phone Number: Address 2: Fax Number: City: Selection Factors: State: Patient Contact Information Contact Name:BOBBYBENSON Relationship: Address:[address] [place] [address] City:[place] Alternate Phone: State/Zip Code:[place] [address] Email: Financial Information Financial Class:Medicare Primary Plan Desc:MEDICARE INPATIENT Primary Plan Number:[id number] Secondary Plan Desc:KEELY/CARL SUPPLEMENT Secondary Plan Number:[id number] Assessment Information LACE LACE Length of stay for Answers: 3 days current admission Acuity / Level of Answers: Yes Care: Did the patient have an inpatient admission? Comorbidities - select Answers: Opioid dependence all that apply / Chronic pain Other Notes: HTN # of Emergency department Answers: 0 visits in the last 6 months Score: 11 Date Signed: 10/27/2018 10:58 AM Electronically Signed By:Nona Lebron RN [facility] CM Progress Note CM Note CM Note Notes: Pt presents with ID of lumbar. CM discussed with . Pt getting pic line tomorrow, likely discharge this weekend. [facility] will follow. CM submit referral to [facility]. CM to follow. Plan: [facility] with [facility]. Date Signed: 10/24/2018 10:03 AM Electronically Signed By:MARJ Moore [facility] CM Progress Note CM Note CM Note Notes: Pt reports they may want to come into the clinic for infusion services depending on frequency. Kaylee from [employer] will let us know cost of home infusion. CM to follow. Plan: infusion at [facility] clinic VS home w/homecare & infusion services. Date Signed: 10/24/2018 11:21 AM Electronically Signed By:MARJ Moore [facility] CM Progress Note CM Note CM Note Notes: Pt met with [facility] who provided education and cost information on medications/ insurance coverage. Pt and family agreeable with Home Infusion Services through [facility]. They said they want to come into [facility] in [place] for nursing services, instead of having Home Nursing. Pt needs health teaching on using eclipse ball prior to discharge. If pt is agreeable, [facility] is able to service pt. Pt's PCP is Dr. Peraza at [facility] in [place]. Date Signed: 10/24/2018 03:30 PM Electronically Signed By:MARJ Moore [facility] CM Progress Note CM Note CM Note Notes: [facility] parts counter representative met with CM re pt's infusions. Niyah's understanding is that a [facility] nurse will teach pt how to use eclipse ball prior to discharge. [facility] will deliver infusion supplies to pt in hospital. They need to be informed of d/c 4 hours prior in order for them to deliver supplies prior to her d/c from hospital. D/C Plan: Independent with training from [facility] nurse, delivery of infusion supplies from [facility] and OP nurse. Date Signed: 10/25/2018 11:30 AM Electronically Signed By:Jewels Hamilton [facility] CM Progress Note CM Note CM Note Notes: Reviewed chart, spoke with Dr. Staley, Dr. Luis and Jewels, RN regarding discharge plan of care, pt's progress. Per Dr. Luis, pt ready for discharge today. Call received from Dr. Staley regarding discharge antibiotics - pt will require 8 weeks of IV antibiotic therapy. Per Dr. Staley, pt able to choose between Vanco 1.25 gm BID, Vanco 2.5 gm continuous infusion or Daptomycin 525 mg every day. Met with pt and pt's to discuss antibiotic choices, home care and home infusion needs. [place] home care [place] people to access their house." Pt also reports feeling as though having home care would be an "intrusion." Pt willing to manage her own IV therapy with regular follow up at Dr. Staley's office. Dr. Staley to the bedside; pt questions answered regarding differences in antibiotics and follow up. Pt and requesting cost differences for each option. Call placed to Kaylee at [facility]. Discussed options for antibiotics. Kaylee to vela and call CM back. Call received from Kaylee - Vanco 1.25 gm BID and Vanco 2.5 gm continuous infusion both cost the same amount. Medicare part B cost is $150.00 for Vanco, plus a Medicare part D daily [place] operator of $35.00. Total cost $395.00/week (7 days). Daptomycin 525 mg daily Medicare part B cost is $1220.00 for Dapto, plus a Medicare part D daily [place]keag operator of $25.00. Total cost $1395.00/week (7 days). Cost options discussed with pt and . Pt elected to discharge with Vancomycin 2.5 gm continuous infusion for discharge. Update provided to Jewels, RN and Dr. Staley. Call placed to Kaylee with [facility]. Per Kaylee, unable to send antibiotics via life skills instructor in time for a discharge this evening. Plan for [facility] to send antibiotics and supplies to hospital late tonight via life skills instructor. Pt to receive Vanco and PICC line teaching at 9:00 am on Sunday10/27/18. Malcolm with Pharmacy at [facility], Kaylee with [facility] and floor RN to conference together for teaching. Update provided to Karen Donis, CTL, Dr. Staley, Dr. Luis, pt and pt's . Everyone in agreement of plan. Floor RN to call Kaylee with [facility] at 9:00 Sunday for teaching . Kaylee to assist via telephone conference. Discharge orders and PICC report faxed to [facility] via [employer]; confirmed receipt with Kaylee. Pt to discharge home independently following teaching in the morning on Sunday10/27/18. Pt will follow up with Dr. Staley on Sunday10/28/18 for a random Vanco level. Pt to follow up twice per week for [address] Staley's radiation safety officer to provide PICC dressing changes and care. CM will continue to follow. Discharge Plan: Home with [facility] Date Signed: 10/26/2018 06:04 PM Electronically Signed By:Magui Diana RN Case Management Discharge Plan Note Case Management Discharge Discharge Order Complete? Answers: Yes Patient to Obtain Answers: Independently Medications Transportation Arranged Answers: Family/Friends Discharge Comments Notes: Patient medically cleared for discharge. She will go home with Home infusion services no [facility] per patient choice. Date Signed: 10/27/2018 11:00 AM Electronically Signed By:Nona Lebron RN Intervention Information
== END 2018-10-27 11:02 | disposition home health service (06) | DRG 863 ==
LOC: FSGY 12:29 → F3N 13:05
PROVIDERS: ADMIT Orthopaedic Surgery Orthopaedic Surgery of the Spine; ATTEND Orthopaedic Surgery Orthopaedic Surgery of the Spine
PROC: 0J9700Z Drainage of Back Subcutaneous Tissue and Fascia with Drainage Device, Open Approach (ICD-10-PCS; principal; 2018-10-23 19:45)
PROC: 02H633Z Insertion of Infusion Device into Right Atrium, Percutaneous Approach (ICD-10-PCS; 2018-10-25)
DX: T81.42XA Infection following a procedure, deep incisional surgical site, initial encounter (principal); R01.1 Cardiac murmur, unspecified; I10 Essential (primary) hypertension; Z98.1 Arthrodesis status
CPT/HCPCS: 86141-90; 87186-90; 97161-GP; 97165-GO; C1751; G8978-GP-CI; G8979-GP-CI; G8980-GP-CI; G8987-GO-CI; G8988-GO-CH; G8989-GO-CI; J0690; J1100; J2001; J2250; J2270; J2405; J2704; J3010; J3370

== ENCOUNTER 2018-11-03 06:40 | Day surgery (SDC) | payer OTHER, MEDICARE ==
[2018-11-03] MEDS ORDERED: BUPIVACAINE/EPI 0.5% 30 ML SDV ONE (07:38)
[2018-11-03] MEDS ORDERED: VANCOMYCIN 500 MG/10 ML VIAL IV ONE (07:39)
[2018-11-03] MEDS ORDERED: BACITRACIN 50,000 UNITS/10 ML SYR IRR ONE (07:39)
[2018-11-03] MEDS ORDERED: VANCOMYCIN 1 GM VIAL ONE (07:40)
[2018-11-03] MEDS ORDERED: ceFAZolin 2 GM/DEXTROSE 100 ML IV ONE (07:41)
--- NOTE | 2018-11-03 07:45 | PDGENHP ---
History & Physical Chief Complaint: lumbar spine drainage s/p lumbar fusion and decompression History of Present Illness: lumbar spine fusion 08/2018, now with persistent drainage. Pertinent Past, Social, Family History: reviewed and noncontributory Relevant Physical Exam: draining lumbar wound. no le deficits Cardiorespiratory Assessment: ok
--- NOTE | 2018-11-03 08:04 | PDANEPAE ---
ANE History of Present Illness I & D of lumbar spine infection, s/p fusion ANE Past Medical History - Cardiovascular History Hx Hypertension: Yes Hx Arrhythmias: No Hx Chest Pain: No Hx Coronary Artery / Peripheral Vascular Disease: No Hx CHF / Valvular Disease: No Hx Palpitations: No - Pulmonary History Hx COPD: No Hx Asthma/Reactive Airway Disease: No Hx Recent Upper Respiratory Infection: No Hx Oxygen in Use at Home: No Hx Sleep Apnea: No Pulmonary History Comment: a little bit of wheezing, pcp ordered flonase, has controlled it - Neurologic History Hx Cerebrovascular Accident: No Hx Seizures: No Hx Dementia: No - Endocrine History Hx Diabetes: No Hypothyroid: No Hyperthyroid: No Obesity: moderate - Renal History Hx Renal Disorders: No - Liver History Hx Hepatic Disorders: No - Neurological & Psychiatric Hx Hx Neurological and Psychiatric Disorders: No - Cancer History Hx Cancer: No - Congenital Disorder History Hx Congenital Disorders: No - GI History GERD: no Hx Gastrointestinal Disorders: No - Other Health History Other Health History: wears reading glasses - Chronic Pain History Chronic Pain: Yes (back pain and bilateral knees) - Surgical History Prior Surgeries: 1966 oophorectomy x1. 1976 hemorrhoidectomy and tubal ligation. Lumbar fusion L2-5 ANE Review of Systems Review of Systems: - Exercise capacity METS (RN): 4 METS ANE Patient History - Allergies Allergies/Adverse Reactions: No Known Allergies Allergy (Verified 11/03/18 06:19) - Home Medications Home Medications: Losartan Potassium [Cozaar 25 mg (*)] 25 mg PO DAILY 08/29/18 [Last Taken ] Hydrochlorothiazide 11/03/18 [Last Taken Unknown] - NPO status NPO Since - Liquids (Date): 11/03/18 NPO Since - Liquids (Time): 00:00 NPO Since - Solids (Date): 11/03/18 NPO Since - Solids (Time): 00:00 - Anes Hx Anes Hx: no prior problems - Smoking Hx Smoking Status: Never smoked - Alcohol Use Alcohol Use: Occasionally - Family Anes Hx Family Anes Hx: none Family Hx Anesthesia Complications: none ANE Labs/Vital Signs - Vital Signs Blood Pressure: 156/83 Heart Rate: 75 Respiratory Rate: 16 O2 Sat (%): 94 Height: 160.02 cm Weight: 87.09 kg ANE Physical Exam - Airway Neck exam: FROM Mallampati Score: Class 1 Mouth exam: normal dental/mouth exam - Pulmonary Pulmonary: clear to auscultation - Cardiovascular Cardiovascular: regular rate and rhythym - ASA Status ASA Status: II ANE Anesthesia Plan Anesthesia Plan: general endotracheal anesthesia
[2018-11-03] MEDS ORDERED: fentaNYL 100 MCG/2 ML INJ ONE ×3 (08:07→10:23)
[2018-11-03] MEDS ORDERED: fentaNYL 250 MCG/5 ML INJ ONE (08:07)
[2018-11-03] MEDS ORDERED: PROPOFOL 200 MG/20 ML VIAL ONE (08:08)
[2018-11-03] MEDS ORDERED: ROCURONIUM 50 MG/5 ML VIAL ONE (08:11)
[2018-11-03] MEDS ORDERED: ONDANSETRON 4 MG/2 ML VIAL ONE ×2 (08:48→11:36)
[2018-11-03] MEDS ORDERED: PHENYLEPHRINE HCL 100 MCG/ML SYR ONE (08:51)
[2018-11-03] MEDS ORDERED: SUGAMMADEX SODIUM 200 MG/2 ML VIAL IVP ONE (09:06)
[2018-11-03] MEDS ORDERED: NALOXONE HCL 0.4 MG/ML INJ IVP PRN (09:08)
[2018-11-03] MEDS ORDERED: oxyCODONE IR 5 MG TAB PO PRN (09:18)
[2018-11-03] MEDS ORDERED: DEXAMETHASONE 4 MG/ML VIAL IVP PRN (09:18)
[2018-11-03] MEDS ORDERED: HYDROCODONE/APAP 5/325 TAB PO PRN (09:18)
[2018-11-03] MEDS: fentaNYL 100 MCG/2 ML INJ IVP PRN ×4 (09:42→10:33)
--- NOTE | 2018-11-03 09:47 | SUROPNOTE ---
[facility] Operative Report - Surgery Date: 11/03/18 SURGEON: Vincenzo Luis MD TRANSITION RN: None. ANESTHESIA: General. PREOPERATIVE DIAGNOSIS: Lumbar spine infection. POSTOPERATIVE DIAGNOSIS: Lumbar spine infection, superficial to fascia. PROCEDURE PERFORMED: Lumbar spine irrigation and debridement, application of nondurable negative pressure device. FINDINGS: Minimal purulence superficial to fascia, no gross communication with deep instrumentation SPECIMENS: Cultures x4 (2 superficial, 2 deep). ESTIMATED BLOOD LOSS: 50 cc. INDICATIONS: The patient is a very pleasant 68-year-old female who underwent a lumbar spine decompression and fusion with instrumentation about 8 weeks ago. She was doing well until about a 2 weeks ago when she was noted to have some drainage from the incision. She had some recurrent drainage. She was indicated for surgery by me after persistent drainage despite antibiotic administration. DESCRIPTION OF PROCEDURE: A surgical time-out was performed and all parties were in agreement on the procedure to be performed, antibiotics were held for the procedure, and preoperative tranexamic acid was administered for the purpose of limiting blood loss. Approach: The incision was opened up and immediate gush of dishwater-type fluid was returned. This was cultured along with some trace amounts of tissue. These were sent as superficial cultures. Antibiotics were administered at this time. The fascia was then opened up and noted to appear good. Small amounts of tissue were also sent. A sterile-appearing sermoa was present. Cultures were sent from deep fluid. Irrigation and debridement: At this time, 3 L of saline was used to debride the lumbar spine and any bits of tissue that were noted were scraped out. Curettes were scraped on all surfaces here as well. At this time, Betadine was placed into the surgical wound itself and left to sit there for approximately 4 minutes. This was then irrigated out with 3 additional L of saline impregnated with antibiotic. Attention was then turned toward closure. #1 Vicryl were used to reapproximate the muscle layer. A deep drain was placed deep to this layer. #1 Vicryl were also used in both an interrupted and running fashion to close the fascia. 2-0 Monocryl sutures were used to reapproximate the deep dermal layers and a 4-0 Stratafix was used to approximate the skin. A running/locking 2-0 nylon was used to close the skin as well. Mastisol was then applied and a negative pressure wound VAC was then applied to the skin. The suction was noted to be good. I was present for the entirety of the procedure. DRAINS: Negative pressure incisional VAC, deep drain (deep to the fascia). COMPLICATIONS: None. CONDITION: Stable to PACU. ASSESSMENT AND PLAN: The patient will be returned to the PACU. I have since discussed with Miranda Franklin MD regarding infectious disease consultation. She already has vancomycin being administered and there is no absolute need to admit her unless she requires it for pain control. I will call her later today if discharged home.
--- NOTE | 2018-11-03 09:49 | POSTANESTH ---
Post Anesthetic Evaluation Cardiovascular Status: Similar to Pre-Op Cond Respiratory Status: Normal, Stable Level of Consciousness/Mental Status: Can Participate in Eval Pain Control: Adequate, Prn Tx Ordered Nausea/Vomiting Control: Adequate, Prn Tx Ordered Complications Possibly Related to Anesthesia: None Noted
[2018-11-03] MEDS ORDERED: oxyCODONE IR 5 MG TAB ONE (10:23)
[2018-11-03] MEDS ORDERED: ONDANSETRON 4 MG/2 ML VIAL IVP ONE (11:51)
[2018-11-03 15:07] VITALS: BP 128/66
== END 2018-11-03 15:07 | disposition home or self-care (01) ==
LOC: FSGY 06:40 → EDSTATUS 07:38 → FSGY 15:07
PROVIDERS: ATTEND Orthopaedic Surgery Orthopaedic Surgery of the Spine
DX: T81.40XA Infection following a procedure, unspecified, initial encounter (principal); I10 Essential (primary) hypertension; Z98.1 Arthrodesis status
CPT/HCPCS: J0690; J2370; J2405; J2704; J3010; J3370